=== PATIENT | female | born 2000 | race Caucasian/White ===

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

== ENCOUNTER 2018-03-23 22:36 | Outpatient (CLI) | payer OTHER ==
--- NOTE | 2018-03-23 23:14 | XRAY Preliminary Report ---
Exam: XR KNEE 3 VIEW RT IMPRESSION: Lateral patellar subluxation, otherwise unremarkable knee radiography. [facility] SITE ID: [id number]
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
== END 2018-03-23 22:37 | disposition home or self-care (01) ==
LOC: DI 22:36
PROVIDERS: ATTEND Naturopath
DX: S83.011A Lateral subluxation of right patella, initial encounter (principal)

== ENCOUNTER 2018-10-08 09:57 | Outpatient (CLI) | payer OTHER | END 2018-10-08 09:58 | disposition home or self-care (01) | LOC: LAB.F 09:57 | PROVIDERS: ATTEND Naturopath | DX: N92.6 Irregular menstruation, unspecified (principal); E03.9 Hypothyroidism, unspecified | CPT/HCPCS: 36415; 84146; 84439; 84443; 84481 ==

== ENCOUNTER 2018-11-10 07:29 | Outpatient (CLI) | payer OTHER ==
[2018-11-10 13:14] LABS: THYROID STIMULATING HORMONE 1.71 uIU/mL (0.34-5.60)
[2018-11-10 13:18] LABS: FREE T4 (FREE THYROXINE) 0.83 ng/dL (0.58-1.64)
== END 2018-11-10 07:30 | disposition home or self-care (01) ==
LOC: LAB.F 07:29
PROVIDERS: ATTEND Naturopath
DX: N92.6 Irregular menstruation, unspecified (principal); E03.9 Hypothyroidism, unspecified
CPT/HCPCS: 36415; 84439; 84443; 84480; 84481

== ENCOUNTER 2018-12-21 07:26 | Outpatient (CLI) | payer OTHER ==
[2018-12-21 12:33] LABS: ALBUMIN 3.4 g/dL (3.2-5.5); ALBUMIN/GLOBULIN RATIO 1.1 (1.0-2.2); ALKALINE PHOSPHATASE 66 IU/L (42-121); ALT ALANINE AMINOTRANSFERASE 12 IU/L (10-60); AST ASPARTATE AMINOTRANSFERASE 16 IU/L (10-42); BILIRUBIN,TOTAL 0.4 mg/dL (0.2-1.0); BUN - BLOOD UREA NITROGEN 14 mg/dL (6-20); CALCIUM 8.7 mg/dL (8.5-10.3); CARBON DIOXIDE - CO2 23 mmol/L (21-32); CHLORIDE 103 mmol/L (101-111); CHOL/HDL RATIO 2.3 (<4.4); CHOLESTEROL 147 mg/dL; CREATININE 0.5 mg/dL (0.4-1.0); CRP HIGH SENSITIVITY 14.7 mg/L; GFR - MDRD 157 (>89); GLUCOSE 84 mg/dL (70-100); HDL CHOLESTEROL 64 mg/dL; LDL CHOLESTEROL,CALCULATED 68 mg/dL; LDL/HDL RATIO 1.1 (<4.4); SODIUM 137 mmol/L (135-145); TOTAL PROTEIN 6.6 g/dL (6.7-8.2); VLDL CHOLESTEROL 15 mg/dL
[2018-12-22 10:27] LABS: ESTRADIOL <15 pg/mL; PROGESTERONE <0.5 ng/mL
[2018-12-23 15:36] LABS: DHEA SULFATE 49 mcg/dL (51-321)
== END 2018-12-21 07:27 | disposition home or self-care (01) ==
LOC: LAB.F 07:26
PROVIDERS: ATTEND Naturopath
DX: Z13.21 Encounter for screening for nutritional disorder (principal); Z13.0 Encounter for screening for diseases of the blood and blood-forming organs and certain disorders involving the immune mechanism; Z13.220 Encounter for screening for lipoid disorders; Z13.1 Encounter for screening for diabetes mellitus; Z13.6 Encounter for screening for cardiovascular disorders
CPT/HCPCS: 36415; 80053; 80061; 81599; 82627; 82670; 82672; 83525; 83721; 84144; 84270; 84403; 86141

== ENCOUNTER 2019-11-23 12:06 | Outpatient (CLI) | payer OTHER ==
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
--- NOTE | 2019-11-23 15:35 | XRAY Report ---
Reason: Thoracic pain Procedure Date: 11/23/2019 Accession Number: [id number] / [id number] Procedure: XRS - Thoracic Spine 2 View CPT Code: Final Report FULL RESULT: EXAM: THORACIC SPINE RADIOGRAPHY EXAM DATE: 11/23/2019 01:21 PM. CLINICAL HISTORY: Thoracic pain. COMPARISON: CERVICAL SPINE COMPLETE 11/23/2019 12:45 PM. TECHNIQUE: 2 views. FINDINGS: Lateral views particularly are degraded by motion. Alignment: There is a subtle less than 5 degree levoconvex thoracic scoliosis. No listhesis is detected. Bones: No fractures or bone lesions. Disks: Normal. Disk heights are maintained. Soft Tissues: Normal. The visualized lungs and cardiomediastinal silhouette are normal. IMPRESSION: Minimal thoracic scoliosis, no listhesis or fracture detected. [facility]
== END 2019-11-23 12:07 | disposition home or self-care (01) ==
LOC: DI.S 12:06
PROVIDERS: ATTEND Chiropractor
DX: S33.5XXA Sprain of ligaments of lumbar spine, initial encounter (principal); S13.4XXA Sprain of ligaments of cervical spine, initial encounter; M41.9 Scoliosis, unspecified
CPT/HCPCS: 72050; 72070; 72100

== ENCOUNTER 2020-09-01 08:57 | Outpatient (CLI) | payer BC, OTHER ==
[2020-09-01 15:30] LABS: BASOPHILS % (AUTO) 0.3 %; EOSINOPHILS # (AUTO) 0.1 10^3/uL (0.0-0.7); EOSINOPHILS % (AUTO) 1.2 %; LYMPHOCYTES % (AUTO) 27.1 %; MEAN CORPUSCULAR HEMOGLOBIN 28.7 pg (27.0-31.0); MEAN CORPUSCULAR HGB CONC 32.7 g/dL (32.0-36.0); MEAN CORPUSCULAR VOLUME 87.7 fL (81.0-99.0); MEAN PLATELET VOLUME 9.6 fL (7.9-10.8); MONOCYTES # (AUTO) 0.3 10^3/uL (0.0-1.0); MONOCYTES % (AUTO) 4.6 %; NEUTROPHILS # (AUTO) 4.9 10^3/uL (1.5-6.6); NEUTROPHILS % (AUTO) 66.5 %; PLT - PLATELET COUNT 335 10^3/uL (130-450); RED BLOOD COUNT 4.88 10^6/uL (4.20-5.40); RED CELL DISTRIBUTION WIDTH 13.4 % (12.0-15.0); WHITE BLOOD COUNT 7.4 x10^3/uL (4.8-10.8)
[2020-09-01 15:47] LABS: ALBUMIN 4.2 g/dL (3.2-5.5); ALBUMIN/GLOBULIN RATIO 1.4 (1.0-2.2); BILIRUBIN,TOTAL 0.5 mg/dL (0.2-1.0); CALCIUM 9.2 mg/dL (8.5-10.3); CREATININE 0.6 mg/dL (0.4-1.0); TOTAL PROTEIN 7.3 g/dL (6.7-8.2)
[2020-09-01 16:00] LABS: THYROID STIMULATING HORMONE 2.78 uIU/mL (0.34-5.60)
[2020-09-01 16:01] LABS: FREE T3 3.37 pg/mL (2.5-3.9)
[2020-09-01 16:06] LABS: FERRITIN 17.7 ng/mL (11.0-306.8)
[2020-09-01 16:07] LABS: PROLACTIN 15.9 ng/mL
[2020-09-01 16:27] LABS: FOLLICLE STIMULATING HORMONE 5.25 mIU/mL
[2020-09-01 16:28] LABS: LUTEINIZING HORMONE 1.71 mIU/mL
== END 2020-09-01 08:58 | disposition home or self-care (01) ==
LOC: LAB.S 08:57
PROVIDERS: ATTEND Nurse Practitioner Family
DX: N92.6 Irregular menstruation, unspecified (principal); E66.9 Obesity, unspecified; E55.9 Vitamin D deficiency, unspecified
CPT/HCPCS: 36415; 80053; 81599; 82306; 82627; 82728; 83001; 83002; 83498; 83525; 84146; 84402; 84403; 84443; 84481; 85025

== ENCOUNTER 2021-08-10 08:00 | Outpatient (CLI) | payer BC ==
--- NOTE | 2021-08-10 13:17 | XRAY Report ---
PROCEDURE: Ankle 3 View RT INDICATIONS: SPRAIN OF RIGHT ANKLE TECHNIQUE: 3 views of the ankle were acquired. COMPARISON: Right ankle radiographs 07/07/2013 FINDINGS: Bones: No acute fractures or dislocations. Ankle mortise is normally aligned. No suspicious bony l esions. An os trigonum is present. Soft tissues: Soft tissue edema is seen over the lateral malleolus. IMPRESSION: No acute osseous abnormality. Soft tissue edema over the lateral malleolus. If there is clinical concern or persistent symptoms, additional imaging such as repeat radiographs or advanced im aging (e.g. CT, MRI) may be helpful for further evaluation. Reviewed by: Juan J Thronton MD on 08/10/2021 1:15 PM PDT Approved by: Juan J Thornton MD on 08/10/2021 1:15 PM PDT Station ID: [id number]
== END 2021-08-10 23:59 | disposition home or self-care (01) ==
LOC: DI.S 08:00
PROVIDERS: ATTEND Emergency Medicine
DX: S93.491A Sprain of other ligament of right ankle, initial encounter (principal); R93.6 Abnormal findings on diagnostic imaging of limbs; R93.89 Abnormal findings on diagnostic imaging of other specified body structures

== ENCOUNTER 2021-10-20 08:00 | Outpatient (CLI) | payer BC | END 2021-10-20 23:59 | disposition home or self-care (01) | LOC: LAB.S 08:00 | PROVIDERS: ATTEND Emergency Medicine | DX: R07.0 Pain in throat (principal) | CPT/HCPCS: 87070 ==

== ENCOUNTER 2023-04-18 22:43 | Emergency (ER) | payer OTHER ==
[2023-04-18 23:05] VITALS: BP 160/98
[2023-04-19] MEDS ORDERED: KETOROLAC 30 MG/ML VIAL IM STA (00:02)
--- NOTE | 2023-04-19 00:05 | ED Physician Documentation ---
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 Patient was sent by her clinic helpline for evaluation for blood clot. Patient has no history of clots, clotting disorder, is a non-smoker, not on steroids, no family history of clots, no recent surgery or bedrest or travel, is not having calf pain or swelling. She does state that her left groin Hurts more with movement, was 9 out of 10 yesterday and 6 out of 10 today, sharp and nonradiating. Review of Systems Musculoskeletal: reports: Joint pain PD PAST MEDICAL HISTORY - Past Medical History GI: Ulcers - Past Surgical History Past Surgical History: Yes HEENT: Tonsil/Adenoidectomy - Present Medications Home Medications: Ambulatory Orders Medication Instructions Recorded Confirmed Omeprazole [Prilosec] 20 mg PO DAILY 11/24/14 11/24/14 Cyclobenzaprine [Flexeril] 10 mg PO TID PRN 6 Days #20 tablet 04/19/23 - Allergies Allergies/Adverse Reactions: Allergies Allergy/AdvReac Type Severity Reaction Status Date / Time amoxicillin [Amoxicillin] Allergy Intermediate itch.rash/p Verified 07/07/13 20:06 ain Sulfa (Sulfonamide Allergy Intermediate rash/pain/i Verified 07/07/13 20:06 Antibiotics) tch acetaminophen [From Percocet] Allergy Nausea Verified 07/14/16 21:22 ibuprofen Allergy Emesis Verified 07/14/16 21:22 oxycodone HCl * Allergy Nausea Verified 07/14/16 21:22 [From Percocet] bupropion [From Wellbutrin] AdvReac Unknown Verified 04/18/23 23:04 prochlorperazine AdvReac Unknown Verified 04/18/23 23:04 [From Compazine] - Social History Does the pt smoke?: No Smoking Status: Never smoker - Immunizations Immunizations are current?: Yes PD ED PE NORMAL - Vitals Vital signs reviewed: Yes - General General: Alert and oriented X 3, No acute distress, Well developed/nourished - HEENT HEENT: Atraumatic, PERRL, EOMI - Derm Derm: Normal color, Warm and dry - Extremities Extremities: No deformity, No tenderness to palpate, Other (L hip discomfort with ROM. 2+ BL dp pulses. normal sensation and movement distally BL LE) - Neuro Neuro: Alert and oriented X 3, No motor deficit, No sensory deficit Results - Vitals Vitals: Vital Signs - 24 hr 04/18/23 23:00 Temperature 36.7 C Heart Rate 98 Respiratory 18 Rate Blood Pressure 160/98 H O2 Saturation 100 Oxygen O2 Source Room air PD Medical Decision Making - ED course ED course: 23-year-old woman presents for ligament strain of left hip. IM Toradol administered with relief. Flexeril sent to pharmacy. Return precautions given. Plan follow-up with primary care provider. Departure - Departure Disposition: 01 Home, Self Care Clinical Impression: Left groin pain Condition: Stable Instructions: Exercise Lower Body Hip Flexor Prescriptions: Cyclobenzaprine [Flexeril] 10 mg PO TID PRN 6 Days #20 tablet PRN Reason: Spasms Comments: You are seen in the emergency department for medical evaluation. Please follow- up with your primary care provider. Return to the emergency department for new or worsening symptoms or other Concerns. Electronic prescription for Flexeril was sent to [facility] in [place].
== END 2023-04-19 00:26 | disposition home or self-care (01) ==
LOC: ED 22:43
DX: R10.32 Left lower quadrant pain (principal)
CPT/HCPCS: 96372; 99283

== ENCOUNTER 2023-06-18 18:27 | Outpatient (CLI) | payer OTHER ==
[2023-06-18 18:45] LABS: BASOPHILS % (AUTO) 0.4 %; EOSINOPHILS # (AUTO) 0.2 10^3/uL (0.0-0.7); EOSINOPHILS % (AUTO) 2.1 %; HCT - HEMATOCRIT 39.6 % (37.0-47.0); HGB - HEMOGLOBIN 12.7 g/dL (12.0-16.0); LYMPHOCYTES # (AUTO) 1.8 10^3/uL (1.5-3.5); LYMPHOCYTES % (AUTO) 22.9 %; MEAN CORPUSCULAR HEMOGLOBIN 27.5 pg (27.0-31.0); MEAN CORPUSCULAR HGB CONC 32.1 g/dL (32.0-36.0); MEAN CORPUSCULAR VOLUME 85.9 fL (81.0-99.0); MEAN PLATELET VOLUME 8.7 fL (7.9-10.8); MONOCYTES # (AUTO) 0.4 10^3/uL (0.0-1.0); MONOCYTES % (AUTO) 4.8 %; NEUTROPHILS # (AUTO) 5.6 10^3/uL (1.5-6.6); NEUTROPHILS % (AUTO) 69.7 %; PLT - PLATELET COUNT 316 10^3/uL (130-450); RED BLOOD COUNT 4.61 10^6/uL (4.20-5.40); RED CELL DISTRIBUTION WIDTH 13.8 % (12.0-15.0); WHITE BLOOD COUNT 8.1 x10^3/uL (4.8-10.8)
[2023-06-18 19:01] LABS: ALBUMIN 4.3 g/dL (3.2-5.5); ALBUMIN/GLOBULIN RATIO 1.7 (1.0-2.2); BILIRUBIN,TOTAL 0.5 mg/dL (0.2-1.0); CALCIUM 9.6 mg/dL (8.5-10.3); CREATININE 0.6 mg/dL (0.6-1.3); TOTAL PROTEIN 6.9 g/dL (6.4-8.9)
== END 2023-06-18 18:28 | disposition home or self-care (01) ==
LOC: LAB 18:27
PROVIDERS: ATTEND Physician Assistant Medical
DX: L29.8 Other pruritus (principal)
CPT/HCPCS: 36415; 80053; 85025

== ENCOUNTER 2024-01-13 23:31 | Emergency (ER) | payer OTHER ==
[2024-01-13 23:48] VITALS: O2SAT 98
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
[2024-01-14] MEDS: BENZONATATE 100 MG CAPSULE PO STA (00:02)
--- NOTE | 2024-01-14 00:21 | XRAY Report ---
PROCEDURE: Chest 1V INDICATIONS: COUGH X 4 DAYS TECHNIQUE: One view of the chest was acquired. COMPARISON: 05/20/2014. FINDINGS: Surgical changes and devices: None. Lungs and pleura: No pleural effusions or pneumothorax. Lungs are clear. Mediastinum: Mediastinal contours appear normal. Heart size is normal. Bones and chest wall: No suspicious bony lesions. Overlying soft tissues appear unremarkable. IMPRESSION: No acute cardiopulmonary process. No focal airspace disease. Reviewed by: Markel Quintanilla MD on 01/14/2024 12:20 AM PST Approved by: Markel Quintanilla MD on 01/14/2024 12:20 AM [facility] Station ID: [id number]
[2024-01-14 00:40] VITALS: BP 134/81
== END 2024-01-14 00:34 | disposition home or self-care (01) ==
LOC: ED 23:31
DX: J06.9 Acute upper respiratory infection, unspecified (principal); E03.9 Hypothyroidism, unspecified; Q79.60 Ehlers-Danlos syndrome, unspecified; Z79.899 Other long term (current) drug therapy
CPT/HCPCS: 71045; 99283; A9270